=== PATIENT | female | born 1955 | race Caucasian/White ===

== ENCOUNTER 2021-12-03 10:48 | Day surgery (SDC) | payer OTHER ==
[~2021-12-03] VITALS: Ht 157.5 cm; Wt 73.9 kg
[~2021-12-03 10:48] MED LIST: METF500C PO; SIMV40 PO; ZESTORETIC 20-121 EA PO
[2021-12-03] MEDS ORDERED: OZEMPIC1 MG/0.72 (11:15)
--- NOTE | 2021-12-03 12:18 | NUR ---
12/03/21 1218 Kim Clarke 0.05ML OF EPI 1MG/ML ADDED TO 10ML OF ROPIVICAINE 0.5% TO CREATE A SOLUTION OF ROPIVICAINE 0.5% WITH EPI 1:200,000.
== END 2021-12-03 13:10 | disposition home or self-care (01) ==
LOC: ORSCSDS 10:48
PROVIDERS: Podiatrist Foot & Ankle Surgery
PROC: 0QBP0ZZ Excision of Left Metatarsal, Open Approach (ICD-10-PCS; principal; 2021-12-03 12:00)
PROC: 0QBR0ZZ Excision of Left Toe Phalanx, Open Approach (ICD-10-PCS; principal; 2021-12-03 12:00)
DX: M20.5X2 Other deformities of toe(s) (acquired), left foot (principal); I10 Essential (primary) hypertension; G47.33 Obstructive sleep apnea (adult) (pediatric); E11.9 Type 2 diabetes mellitus without complications; E78.00 Pure hypercholesterolemia, unspecified; Z79.84 Long term (current) use of oral hypoglycemic drugs; Z79.899 Other long term (current) drug therapy
CPT/HCPCS: 82947; J0171; J0690; J2001; J2250; J2704; J2795; J3010; J7120

== ENCOUNTER → 2022-02-28 | Outpatient (CLI) | payer OTHER ==
[~2022-02-28] MED LIST changes: +OZEMPIC1 MG/0.72
[2022-02-28 10:13] LABS: CHOL/HDL RATIO 6.6; Cholesterol 251 mg/dL (50-200); HDL Cholesterol 38 mg/dL (>39); LDL/HDL RATIO 4.6; Low Density Lipoprotein Chol 177 mg/dL (0-110); Triglycerides 182 mg/dL (30-160); Very Low Density Lipoprot Chol 36 mg/dL (6-32)
== END | disposition home or self-care (01) ==
LOC: LAB SHORT 08:16 → LAB 08:16
PROVIDERS: Internal Medicine Endocrinology, Diabetes & Metabolism
DX: E78.5 Hyperlipidemia, unspecified (principal)
CPT/HCPCS: 36415; 80061

== ENCOUNTER → 2024-07-18 | Outpatient (CLI) | payer MEDICARE, OTHER ==
[2024-07-18 23:51] LABS: Creatinine, Urine Random 36.1 mg/dL (27.00-270.00)
[2024-07-18 23:52] LABS: Microalb/Creat Ratio UR, Rand 32.964 mg/g (0.000-30.000); Microalbumin, Random Urine 11.9 mg/L (0.000-20.000)
== END | disposition home or self-care (01) ==
LOC: LAB 18:11 → LAB SHORT 18:11
PROVIDERS: Family Medicine
DX: E11.21 Type 2 diabetes mellitus with diabetic nephropathy (principal)
CPT/HCPCS: 82043; 82570

== ENCOUNTER 2025-01-08 06:08 | Day surgery (SDC) | payer MEDICARE, OTHER ==
[~2025-01-08] VITALS: Ht 157.5 cm; Wt 72.3 kg
[2025-01-08] MEDS ORDERED: ATOR40TA PO (06:27)
[2025-01-08] MEDS ORDERED: LOSARTAN POTAS100 M1 PO (06:28)
[2025-01-08] MEDS ORDERED: IBUP800 PO (06:29)
[2025-01-08] MEDS ORDERED: CALCIUM 600 MG1 EA18 PO (06:30)
[2025-01-08] MEDS ORDERED: CeFAZolin Sodium 2,000 MG VIAL ONE (06:46)
[2025-01-08] MEDS ORDERED: Phenylephrine HCl 100 MCG/ML-NS 10MLSYR (1MG/10ML) ONE (06:49)
[2025-01-08] MEDS ORDERED: Dexamethasone Sod Phos 10 MG/ML 1ML VIAL ONE (06:49)
[2025-01-08] MEDS ORDERED: FentaNYL Citrate 50 MCG/ML 2 ML Injection ONE (06:49)
[2025-01-08] MEDS ORDERED: Midazolam HCl 1MG / ML 2ML Vial ONE (06:49)
[2025-01-08] MEDS ORDERED: Ondansetron HCl 2 MG / ML 2ML Vial ONE (06:49)
[2025-01-08] MEDS ORDERED: Rocuronium Bromide 10 MG/ML 5ML Injection IV ONE (06:49)
--- NOTE | 2025-01-08 06:52 | NUR ---
01/08/25 0652 DEVANTE CASTRO AREA ON BACK ON RIGHT SHOULDER- PINK/RED APPROX 2"X2". ITCHING SAME MEDICATION (BRAYAN WIPE) SAME WASH DONE AT HOME IN [place]
--- NOTE | 2025-01-08 08:10 | NUR ---
01/08/25 0810 Myrna Crain 10ML NACL WITH 0.05MG EPI USED FOR INJECTION BY DR PETIT BEFORE START
[2025-01-08] MEDS ORDERED: Sugammadex Sodium 200 MG/2ML SDV (100 MG/ML) ONE (08:48)
[2025-01-08 09:20] VITALS: BP 141/83
--- NOTE | 2025-01-08 09:31 | NUR ---
01/08/25 0931 Leticia Moore PT TRANSFERRED TO CHAIR WITH ASSIST FROM RN. PT COMPLAINS OF MICHAEL AT THIS TIME. 06/03 PAIN. VSS.
== END 2025-01-08 10:28 | disposition home or self-care (01) ==
LOC: ORSCSDS 06:08
PROVIDERS: Orthopaedic Surgery
PROC: 0PB94ZZ Excision of Right Clavicle, Percutaneous Endoscopic Approach (ICD-10-PCS; principal; 2025-01-08 07:30)
PROC: 0LM14ZZ Reattachment of Right Shoulder Tendon, Percutaneous Endoscopic Approach (ICD-10-PCS; principal; 2025-01-08 07:30)
PROC: 0RNJ4ZZ Release Right Shoulder Joint, Percutaneous Endoscopic Approach (ICD-10-PCS; principal; 2025-01-08 07:30)
DX: M75.121 Complete rotator cuff tear or rupture of right shoulder, not specified as traumatic (principal); M75.41 Impingement syndrome of right shoulder; M71.9 Bursopathy, unspecified; I10 Essential (primary) hypertension; E78.5 Hyperlipidemia, unspecified; G47.33 Obstructive sleep apnea (adult) (pediatric); E11.9 Type 2 diabetes mellitus without complications; Z79.899 Other long term (current) drug therapy; Z79.85 Long-term (current) use of injectable non-insulin antidiabetic drugs
CPT/HCPCS: 82947; C1713; J0166; J0690; J1100; J2250; J2371; J2405; J2704; J3010; J7120